=== PATIENT | female | born 1950 | race Caucasian/White ===

== ENCOUNTER 2022-04-27 12:18 | Emergency (ER) | payer OTHER, BC ==
[2022-04-27 12:25] VITALS: BP 128/70; PULSE 85; RESP 20; TEMP 97.5; BMI 24.4
[2022-04-27] MEDS ORDERED: KETOROLAC TROMETHAMINE 30 MG/1 ML VIAL IM ONE (13:37)
[2022-04-27] MEDS ORDERED: KETOROLAC TROMETHAMINE 30 MG/1 ML VIAL ONE (13:41)
== END 2022-04-27 13:44 | disposition home or self-care (01) ==
LOC: JERFT 12:18
PROC: 3E0233Z Introduction of Anti-inflammatory into Muscle, Percutaneous Approach (ICD-10-PCS; principal; 2022-04-27)
DX: M54.50 Low back pain, unspecified (principal); G89.29 Other chronic pain
CPT/HCPCS: 99284-25

== ENCOUNTER → 2022-05-07 | Day surgery (SDC) | payer OTHER, BC ==
[2022-05-06 10:47] VITALS: BMI 24.6
[~2022-05-07] MED LIST: DEXAMETHASONE SOD PHOSPHATE 10 MG/1 ML VIAL ONE; LIDOCAINE HCL/PF 1% SDV 5ML VIAL ONE
== END | disposition home or self-care (01) ==
LOC: JASU-SURG 04:31
PROVIDERS: ATTEND Pain Medicine Pain Medicine
DX: Z53.8 Procedure and treatment not carried out for other reasons (principal)
CPT/HCPCS: J1100

== ENCOUNTER 2022-05-24 05:31 | Day surgery (SDC) | payer OTHER, BC ==
[2022-05-17 15:32] VITALS: BMI 24.6
[2022-05-24] MEDS ORDERED: DEXAMETHASONE SOD PHOSPHATE 10 MG/1 ML VIAL ONE (07:43)
[2022-05-24] MEDS ORDERED: LIDOCAINE HCL/PF 1% SDV 5ML VIAL ONE (07:43)
[2022-05-24 11:17] VITALS: RESP 18
[2022-05-24] MEDS ORDERED: LIDOCAINE HCL 1%, 10 MG/ML (20ML VIAL) INF ONE (11:39)
[2022-05-24] MEDS ORDERED: DEXAMETHASONE SOD PHOSPHATE 10 MG/1 ML VIAL IM ONE (11:40)
[2022-05-24 12:16] VITALS: TEMP 98.7
[2022-05-24 13:50] VITALS: BP 119/77; PULSE 75
== END 2022-05-24 13:15 | disposition home or self-care (01) ==
LOC: JASU-SURG 05:31
PROVIDERS: ATTEND Pain Medicine Pain Medicine
PROC: 3E0R3BZ Introduction of Anesthetic Agent into Spinal Canal, Percutaneous Approach (ICD-10-PCS; 2022-05-24)
PROC: 3E0R33Z Introduction of Anti-inflammatory into Spinal Canal, Percutaneous Approach (ICD-10-PCS; principal; 2022-05-24 11:35)
DX: M54.16 Radiculopathy, lumbar region (principal)
CPT/HCPCS: 76000-TC-FY; J1100

== ENCOUNTER 2022-07-16 04:38 | Day surgery (SDC) | payer OTHER ==
[2022-07-10 17:39] VITALS: BMI 24.6
[2022-07-16] MEDS ORDERED: LIDOCAINE HCL/PF 1% SDV 5ML VIAL ONE (07:46)
[2022-07-16] MEDS ORDERED: DEXAMETHASONE SOD PHOSPHATE 10 MG/1 ML VIAL ONE ×2 (07:46→13:25)
[2022-07-16 13:08] VITALS: RESP 18
[2022-07-16] MEDS ORDERED: IOHEXOL 180 MG/1 ML ML IJ ONE (13:33)
[2022-07-16] MEDS ORDERED: DEXAMETHASONE SOD PHOSPHATE 10 MG/1 ML VIAL IVPUSH ONE (13:33)
[2022-07-16] MEDS ORDERED: ACETAMINOPHEN 500 MG TABLET (FP) PO PRN (13:33)
[2022-07-16] MEDS ORDERED: LIDOCAINE HCL 1% PRESERVATIVE FREE - 30ML VIAL IJ ONE (13:33)
[2022-07-16 15:22] VITALS: TEMP 98
[2022-07-16 15:25] VITALS: BP 118/68; PULSE 64
== END 2022-07-16 14:45 | disposition home or self-care (01) ==
LOC: JASU-SURG 04:38
PROVIDERS: ATTEND Pain Medicine Pain Medicine
PROC: 3E0R3BZ Introduction of Anesthetic Agent into Spinal Canal, Percutaneous Approach (ICD-10-PCS; 2022-07-16)
PROC: 3E0R33Z Introduction of Anti-inflammatory into Spinal Canal, Percutaneous Approach (ICD-10-PCS; principal; 2022-07-16 15:15)
DX: M54.16 Radiculopathy, lumbar region (principal)
CPT/HCPCS: 76000-TC-FY; J1100

== ENCOUNTER 2023-06-03 04:27 | Day surgery (SDC) | payer OTHER, BC ==
[2023-05-28 13:50] VITALS: BMI 25.4
[2023-06-03] MEDS ORDERED: DEXAMETHASONE SOD PHOSPHATE 10 MG/1 ML VIAL ONE ×2 (07:12→09:17)
[2023-06-03] MEDS ORDERED: LIDOCAINE HCL/PF 1% SDV 5ML VIAL ONE ×2 (07:12→07:31)
[2023-06-03] MEDS: LIDOCAINE HCL 1% PRESERVATIVE FREE - 30ML VIAL IJ ONE (09:28)
[2023-06-03] MEDS: IOHEXOL 180 MG/1 ML ML IJ ONE (09:31)
[2023-06-03] MEDS: DEXAMETHASONE SOD PHOSPHATE 10 MG/1 ML VIAL IM ONE (09:32)
[2023-06-03 09:44] VITALS: BP 101/65; PULSE 72; RESP 18; TEMP 97.3
[2023-06-03] MEDS ORDERED: ACETAMINOPHEN 500 MG TABLET (FP) PO PRN (10:21)
== END 2023-06-03 10:35 | disposition home or self-care (01) ==
LOC: JASU-SURG 04:27
PROVIDERS: ATTEND Pain Medicine Pain Medicine
PROC: 3E0R3BZ Introduction of Anesthetic Agent into Spinal Canal, Percutaneous Approach (ICD-10-PCS; 2023-06-03)
PROC: 3E0R33Z Introduction of Anti-inflammatory into Spinal Canal, Percutaneous Approach (ICD-10-PCS; principal; 2023-06-03 09:15)
DX: M48.061 Spinal stenosis, lumbar region without neurogenic claudication (principal); M54.16 Radiculopathy, lumbar region
CPT/HCPCS: 76000-TC-FY; J1100